=== PATIENT | male | born 1965 | race Caucasian/White ===

== ENCOUNTER 2018-06-02 09:28 | Inpatient (IN) | payer OTHER, SELFPAY ==
[2018-06-02] MEDS ORDERED: Ondansetron HCl/PF 4 MG/2 ML Vial ONE ×2 (09:55→11:20)
[2018-06-02] MEDS ORDERED: Pantoprazole 40 MG VIAL ONE (10:15)
[2018-06-02 10:16] LABS: Hemoglobin 18.9 g/dL (14.0-18.0); Mean Corpuscular HGB CONC 34.7 g/dL (32.0-36.0); Mean Corpuscular Hemoglobin 32.9 pg (27.0-31.0); Mean Corpuscular Volume 94.7 fL (78.0-98.0); Mean Platelet Volume 9.1 fL (7.4-10.4); Platelet Count 225 thou/uL (130-400); Red Blood Cell (RBC) Count 5.76 mill/uL (4.70-6.10); White Blood Cell (WBC) Count 20.2 thou/uL (4.8-10.8)
[2018-06-02 10:33] LABS: ALT (SGPT) 2126 U/L (8-55); AST (SGOT) 3267 U/L (5-34); Albumin 4.7 g/dL (3.5-5.0); Alkaline Phosphatase 130 U/L (40-150); Anion Gap 20 mmol/L (10-20); BUN (Urea Nitrogen) 17 mg/dL (8.4-25.7); Bilirubin, Total 1.8 mg/dL (0.2-1.2); Calc. Creatinine Clearance 0 mL/min (70-130); Calcium 8.8 mg/dL (7.8-10.44); Carbon Dioxide 27 mmol/L (22-29); Chloride 91 mmol/L (98-107); Estimated GFR-MDRD 58; Globulin 3.3 g/dL (2.4-3.5); Glucose 435 mg/dL (70-105); Lipase 16 U/L (8-78); Potassium 3.9 mmol/L (3.5-5.1); Sodium 134 mmol/L (136-145)
[2018-06-02 10:38] LABS: Troponin I Less than 0.010 ng/mL (< 0.028)
[2018-06-02 10:47] LABS: Band 4 % (5-11); Eosinophils 1 % (0-10); Lymphocytes 8 % (21-51); MDiff Complete? YES; Monocytes 3 % (0-10); Neutrophil 83 % (42-75); PLT Morphology Comment Appears Adequate; Reactive Lymphocytes 1 % (0-10)
[2018-06-02] MEDS ORDERED: Piperacillin/Tazobactam 4.5 GM VIAL ONE (11:20)
[2018-06-02] MEDS ORDERED: Lorazepam 2 MG/ML VIAL ONE (11:22)
[2018-06-02 12:08] LABS: Acetaminophen Less than 6.0 mcg/mL (10.0-30.0); Alcohol 38 mg/dL (Less than 10); Salicylate Less than 8.0 mg/dL (15.0-30.0)
[2018-06-02] MEDS ORDERED: Lidocaine Viscous Sol 2% 15 ml UD Cup ONE (12:09)
[2018-06-02] MEDS ORDERED: ISOVUE-370 76%-LOCM 1 ML ONE (12:22)
--- NOTE | 2018-06-02 12:23 | CT ---
CT OF THE ABDOMEN AND PELVIS WITH IV CONTRAST: INDICATION: Nausea and vomiting with coffee grounds emesis. FINDINGS: The exam was compared to a prior dated 04/11/08. Lung bases are clear. There is a small hiatal hernia. There is wall thickening involving the distal esophagus. There is fatty infiltration of the liver. A small gallstone is seen within the gallbladder neck. The pancreas and adrenal glands are normal appearing. The kidneys and spleen appear within normal li mits. No free fluid or enlarged lymph nodes are evident. There is a normal appendix in the right lo wer quadrant of the abdomen. Colon is largely decompressed. The small bowel is of normal caliber. No free fluid or lymphadenopathy is evident within the pelvis. No definite acute osseous abnormality is evident. IMPRESSION: 1. Wall thickening involving the esophagus may be related to reflux esophagitis or poor distention. 2. Fatty liver. 3. Cholelithiasis. POS: [facility]
--- NOTE | 2018-06-02 12:25 | RAD ---
AP VIEW OF THE CHEST: INDICATION: Nausea and vomiting. COMPARISON: Prior chest radiograph dated 04/11/08. FINDINGS: Lungs are clear. Heart size is upper limits of normal. No acute osseous abnormality is evident. IMPRESSION: No acute abnormality. POS: [facility]
--- NOTE | 2018-06-02 13:13 | PDOC.FPRHP ---
- History of Present Illness Chief Complaint: nausea and vomiting History of Present Illness: Mr Heredia is a 53yo male with pmh of anxiety presenting with vomiting for the past 2 days. States a swollen, puffy throat with difficulty swallowing. Reports having to continue to spit saliva. Associated with voice change as well. Reports 10 to 15 episodes of emesis per day. Denies known sick contacts. Does report increased stress and recent travel to [facility] (2 months ago, stayed 2 wks). Alcohol use recently with binge drinking intermittently. Reports binge episodes occur with increased stress and anxiety. Vomiting consist of food and liquid particles only. Prior to admission today reports "coffee ground emesis." States pain to epigastrum radiating to chest with nausea. Last drink was this morning. Continues to report throat feeling like it is getting "more and more swollen." Denies SOB, blood in stool or melena. Endorses diffuse abdominal pain worse in epigastric area. ED Course: Zosyn 4.5g, Ativan 1mg, zofran 4mg, NS 1.5L, Protonix 80mg, NS 1L - Allergies/Adverse Reactions Allergies Allergy/AdvReac Type Severity Reaction Status Date / Time No Known Allergies Allergy Verified 05/19/13 09:37 - Home Medications Medication Instructions Recorded Confirmed Type No Known 05/19/13 06/02/18 History - History PMHx: Anxiety PSHx: None FHx: Father: PA, CAD, Alzemhier disease. Sister: GERD. Mother: HTN Social: Drinks socially but in the past daily drinker (no past history of alcohol withdrawl symptoms or DTs), pack per day around age [age] years old but stopped at that time as well, denies drug Travel: Multiple countries. Recent travel to [facility] 2 months ago - Review of Systems General: denies: fever/chills, weight/appetite/sleep changes, night sweats, fatigue Eyes: denies: eye pain, vision changes ENT: denies: nasal congestion, rhinorrhea Respiratory: reports: cough (with vomiting). denies: congestion, shortness of breath, exercise intolerance Cardiovascular: denies: chest pain, palpitation, edema, paroxysmal nocturnal dyspnea, orthopnea Gastrointestinal: reports: nausea, vomiting, abdominal pain, GI bleeding. denies: diarrhea, constipation Genitourinary: denies: incontinence, dysuria, polyuria, discharge Skin: denies: rashes, lesions, jaundice, itching Musculoskeletal: denies: pain, tenderness, stiffness, swelling, arthritis/ arthralgias Neurological: denies: numbness, syncope, seizure, weakness Psychological: reports: anxiety. denies: depression - Vital signs BP: 144/110 HR: 96 RR: 18 Tmax: 98.6 Pox: 96% on RA Wt: 83.91kg - Physical Exam Constitutional: NAD, awake, alert and oriented, well developed, other (voice hoarseness, spitting and gagging/hiccuping) HEENT: normocephalic and atraumatic, conjunctiva clear, TM's clear and intact, other (dry mucous membranes, hard/soft palate and buccal erythema) Neck: supple, trachea midline, other (neck tender to deep palpation) Heart: RRR, pulses present, no edema Lungs: CTAB Abdomen: soft, non-tender, bowel sounds present Skin: capillary refill <2 seconds Psychiatric: normal mood and affect, good judgment and insight, intact recent and remote memory FMR H&P: Results - Labs Result Diagrams: 06/03/18 05:21 06/03/18 05:21 Lab results: WBC 20.2 thou/uL (4.8-10.8) H 06/02/18 10:03 Hgb 18.9 g/dL (14.0-18.0) H 06/02/18 10:03 Hct 54.5 % (42.0-52.0) H 06/02/18 10:03 MCV 94.7 fL (78.0-98.0) 06/02/18 10:03 Plt Count 225 thou/uL (130-400) 06/02/18 10:03 Band Neuts % (Manual) 4 % (5-11) L 06/02/18 10:03 Sodium 134 mmol/L (136-145) L 06/02/18 10:03 Potassium 3.9 mmol/L (3.5-5.1) 06/02/18 10:03 Chloride 91 mmol/L (98-107) L 06/02/18 10:03 Carbon Dioxide 27 mmol/L (22-29) 06/02/18 10:03 BUN 17 mg/dL (8.4-25.7) 06/02/18 10:03 Creatinine 1.29 mg/dL (0.6-1.3) 06/02/18 10:03 Glucose 435 mg/dL (70-105) H 06/02/18 10:03 Lactic Acid 7.4 mmol/L (0.5-2.2) H* 06/02/18 10:00 Calcium 8.8 mg/dL (7.8-10.44) 06/02/18 10:03 Total Bilirubin 1.8 mg/dL (0.2-1.2) H 06/02/18 10:03 AST 3267 U/L (5-34) H 06/02/18 10:03 ALT 2126 U/L (8-55) H 06/02/18 10:03 Alkaline Phosphatase 130 U/L (40-150) 06/02/18 10:03 Serum Total Protein 8.0 g/dL (6.0-8.3) 06/02/18 10:03 Albumin 4.7 g/dL (3.5-5.0) 06/02/18 10:03 Lipase 16 U/L (8-78) 06/02/18 10:03 - Radiology Interpretation CT scan - abdomen Status: report reviewed by me Additional comment: Wall thickening involving esophagus, may be related to esophagitis or poor distention. Fatty liver, cholelithiasis Chest x-ray Status: report reviewed by me Additional comment: No acute abnormalities FMR H&P: A/P - Problem List (1) Intractable vomiting Current Visit: Yes Status: Acute Code(s): R11.10 - VOMITING, UNSPECIFIED (2) Anxiety Current Visit: Yes Status: Acute Code(s): F41.9 - ANXIETY DISORDER, UNSPECIFIED (3) Transaminitis Current Visit: Yes Status: Acute Code(s): R74.0 - NONSPEC ELEV OF LEVELS OF TRANSAMNS & LACTIC ACID DEHYDRGNSE (4) Alcohol use disorder Current Visit: Yes Status: Acute Code(s): TDA1290 - (5) Lactic acidosis Current Visit: Yes Status: Acute Code(s): E87.2 - ACIDOSIS (6) Hyperglycemia Current Visit: Yes Status: Acute Code(s): R73.9 - HYPERGLYCEMIA, UNSPECIFIED - Plan 53 yo M with PMHx anxiety and recent increase in alcohol use who presents with acute hepatitis Transaminitis 2/2 alcohol abuse vs viral vs parastitic infection - Hepatocellular pattern - AST/ALT: 3267/2126. Alk phos nml. Bili 1.8 - Alcohol: 38 - neg for Tylenol/salicylates, UDS neg - CT 06/02: Esophageal wall thickening, fatty liver, cholelithiasis, - RUQ US: Echogenic focus with questionable shadowing near gallbladder neck - Recent travel to [facility] - HIV/RPR/Hep panel pending - Continue Zosyn Hard/soft palate and buccal swelling - Likely result of inflammation from vomiting - Denies SOB - s/p Atarax IV & home ranitidine - Continue to monitor Nausea and Vomiting - No electrolyte abnormalities, lactic acidosis - 2.5L in ED - LR @ 110ml/hr - Zofran for nausea Hyperglycemia - Hx of undiagnosed DM vs DKA - Ordered BMP, HgbA1c, beta hydroxybut - Continue to monitor, consider VBG if labs come back abnormal Esophageal Thickening - Noted on CT, inflammatory vs esophageal varices - Consulted GI Lactic Acidosis - 7.4 - Downtrending repeat 5.4 - Continue IVF and antibiotics Polycythemia - Likely 2/2 volume depletion from vomiting - IVF - Continue to monitor, CBC in AM Leukocytosis - likely related to acute hepatitis Hyperbilirubinemia - Likely result of acute hepatitis, manage as above HTN - likely chronic - Start Lisinopril 10mg Alcohol Withdrawal - No hx of withdrawal in past - Last drink this AM - ASE protocol - Ativan PRN for withdrawal symptoms Code Status: FULL DVT ppx: Lovenox FMR H&P: Upper Level - Pertinent history 53 yo M with PMHx anxiety, alcohol use and remote hx of tobacco use who presents with 2 days of nausea and vomiting. Noted 1 episode of dark vomit just prior to admission. He also started to notice swelling in the top of his mouth and when he began to have trouble swallowing his spit he decided to come in. He has been taking zantac every 2-3 hours the last couple of days with temporary improvement but denies taking any other medications or herbs. He has been eating but would throw it right back up. He drank heavily on Saturday night, felt anxious yesterday and had a few drinks and a beer this morning and threw them all back up. He denies f/c/diarrhea. His throat is puffy and he is noting voice changes. Denies sick contacts. Recently when to [place] 2 months ago but denies any 'adventurous eating' and no one with him got sick. He denies any rashes or bug bites. His discomfort is mostly in his mid-abdomen and he is hiccuping which he reports started when he arrived. - Pertinent findings Exam: Gen: alert and oriented x3. belching/hiccupping and spitting up clear sputum, appears anxious and is fidgeting HEENT: PERRLA, EOMI, conjunctiva non-injected, soft palate swollen without exudates, posterior oropharynx and tonsils not swollen, mild erythema, TTP in anterior cervical chain without palpable LAD, no thyromegaly CV: RRR, no murmur noted RESP: CTAB Abd: soft, mildly TTP in epigastrum, bowel sounds present throughout, liver palpable 1 cm below costal margin, negative Torres's and McBurney's point tenderness, no noted splenomegaly Ext: No edema, pulses full and equal Skin: tattoo on R wrist See labs and CT finding above - Plan Date/Time: 06/02/18 1311 I, Vivian Lopez MD, have evaluated this patient and agree with findings/plan as outlined by internal medicine doctor resident. Pertinent changes/additions are listed here. 53 yo M with PMHx anxiety, alcohol use and remote history of tobacco use here with intractable n/v and acute hepatitis 1. Acute hepatitis: Unclear etiology but significant transaminitis with leukocytosis. DDX includes acute biliary tract pathology including cholecystitis , alcoholic hepatitis, viral hepatitis, parasitic infection, and infectious mononucleosis. Alcohol level slightly elevated. Will start ASE protocol, check acute hepatitis panel, HIV, RPR. RUQ sono pending. Will consider general surgery consult vs. GI pending RUQ sono results. Serum drug screen WNL apart from alcohol. UDS pending. Started on Zozyn in ED, BCx pending. Repeat lactate pending. 2. Soft palate swelling: Likely inflammatory 2/2 ongoing vomiting. Will give 25mg Benadryl IV and recheck in 1 hour. No sx shortness of breath, hoarseness or stridor. Lungs CTAB. Will monitor closely. Will check monospot. 3. N/V: Labs consistent with contraction alkalosis with resultant metabolic acidosis. Will start IV LR @ 150 mL/hr 4. Anxiety: Pending stabilization, will discuss possible pharmacologic options 5. Alcohol abuse: ASE protocol. Denies history of DTs or withdrawals and has gone many days without drinking in last month. 6. Tattoo: Hepatitis, HIV and RPR as above 7. Elevated Hgb/Hct: Will monitor and consider further workup if persistent. Platelets WNL. 8. Hyperglycemia: Will repeat and add b-hb, a1c and add ABG if anion gap persistent 9. Hyperbilirubinemia: Likely related to heptatitis as above, will trend. 10. Lactic acidosis: Repeat pending. Fluids as above. 11. Elevated BP: Persistent without history. Will start ACEi and continue to monitor closely PPX: Lovetatex Attending Addendum - Attending Addendum Date/Time: 06/02/181822 I personally evaluated the patient and discussed the management with Dr. Dixon and Dr. Lopez I agree with the History, Examination, Assessment and Plan documented above with any addition or exceptions noted below. 53 yo male with history of anxiety disorder admitted for acute hepatitis and intractable N/V. Patient reports nausea better with medication. Still having dry heaves. Reports dysphagia and feeling throat swelling. 1 episode of coffee ground emesis prior to admission. Recent binge drinking episodes. Recent travel outside of country. Mild epigastric pain but nontender. VS reviewed. Elevated BP noted. Afebrile Oralpharynx with edema. Nontender abdomen. Labs and imaging reviewed. 1. Acute hepatits: Significantly elevated AST/ALT. Hep panel pending. Repeat LFT this afternoon. Continue IVFs. Check lipase. No evidence of Budd Mary on CT at this time. RUQ sono pending. Consult GI if progressing. Consider autoimmune hepatitis. Possible related to binge drinking. 2. HTN: Adjust BP meds 3. Anxiety: Add SSRI Treat symptoms. Monitor closely. Vinayak
[2018-06-02 13:15] LABS: INR-International Normal Ratio 1.7; PTT 31.2 SEC (22.9-36.1)
[2018-06-02 13:31] LABS: Bilirubin Negative (Negative); Blood, Urine Negative (Negative); Clarity CLEAR (Clear); Glucose, Urine (Dipstick) >=1000 mg/dL (Negative); Leukocyte Negative (Negative); Nitrite Negative (Negative); Protein, Urine (Dipstick) Negative (Neg-Trace); pH, Urine 6.5 (5.0-9.0)
[2018-06-02 13:35] LABS: Specific Gravity, Urine 1.059 (1.002-1.036)
[2018-06-02] MEDS ORDERED: diphenhydrAMINE 50 MG/ML VIAL IVP SCH (14:00)
[2018-06-02] MEDS ORDERED: diphenhydrAMINE 50 MG/ML VIAL ONE ×3 (14:07→14:09)
--- NOTE | 2018-06-02 14:31 | ULT ---
GALLBLADDER ULTRASOUND: HISTORY: Right upper quadrant pain. FINDINGS: Real-time imaging of the right upper quadrant was performed. This shows an approximately 5-6 mm echo genic focus closer to the gallbladder neck. It is difficult to definitely show that this moves with changes in patient position as the patient was not able to fully cooperate. On some of the images, t here is some shadowing present. It could represent a small stone or possibly an adherent cholesterol -type stone. The common duct is 5 mm. The technologist reports a negative ultrasound Torres's sign. The liver is of increased echogenicity. It measures 18 cm in length. The pancreas is partially obscured. The right kidney is normal in size and not obstructed. IMPRESSION: Echogenic focus with questionable faint shadowing seen near the gallbladder neck region. It is diffi cult to show that this moves with changes in patient position. The patient was unable to fully coope rate. This could represent a small nonshadowing stone, possibly an adherent cholesterol-type stone o r small polyp. POS: [facility]
[2018-06-02 14:59] LABS: Lactic Acid 5.3 mmol/L (0.5-2.2)
[2018-06-02] MEDS ORDERED: hydrOXYzine 25 MG/ML VIAL IM SCH (15:00)
[2018-06-02] MEDS ORDERED: Lactated Ringer's 1,000 ML IV SCH (17:28)
[2018-06-02] MEDS ORDERED: Lorazepam 1 MG TAB PO PRN (17:28)
[2018-06-02] MEDS ORDERED: Ondansetron ODT 4 MG TAB PO PRN (17:28)
[2018-06-02 17:49] VITALS: BMI 27.1
[2018-06-02 17:58] LABS: Amphetamine Not Detected (NotDetected); Barbiturates Screen Not Detected (NotDetected); Benzodiazepine Screen Not Detected (NotDetected); Cocaine Metabolite Screen Not Detected (NotDetected); Medtox Control Line Valid? VALID (VALID); Medtox Reader # READER 1; Methadone Not Detected (NotDetected); Methamphetamine Not Detected (NotDetected); Opiate Screen Not Detected (NotDetected); Oxycodone Screen Not Detected (NotDetected); Phencyclidine (PCP) Not Detected (NotDetected); THC/Cannabinoid Screen Not Detected (NotDetected); Tricyclic Screen Not Detected (NotDetected)
[2018-06-02 18:10] LABS: MONO NEGATIVE CONTROL ZONE White (Negative) (White); MONO POSITIVE CONTROL Pink Line (Positive) (PINK/RED); Mononucleosis NEGATIVE (NEGATIVE)
[2018-06-02 18:20] LABS: ALT (SGPT) 1599 U/L (8-55); AST (SGOT) 1693 U/L (5-34); Albumin 4.1 g/dL (3.5-5.0); Alkaline Phosphatase 108 U/L (40-150); Bilirubin, Direct 0.7 mg/dL (0.1-0.3); Bilirubin, Total 1.6 mg/dL (0.2-1.2); Protein, Total 6.8 g/dL (6.0-8.3)
[2018-06-02] MEDS ORDERED: Lisinopril 10 MG TAB PO SCH (18:30)
[2018-06-02] MEDS: Lactated Ringer's 1,000 ML IV SCH (18:30)
[2018-06-02 18:31] LABS: Anion Gap 15 mmol/L (10-20); BUN (Urea Nitrogen) 16 mg/dL (8.4-25.7); Calc. Creatinine Clearance 111 mL/min (70-130); Calcium 8.5 mg/dL (7.8-10.44); Carbon Dioxide 26 mmol/L (22-29); Chloride 102 mmol/L (98-107); Estimated GFR-MDRD 83; Glucose 206 mg/dL (70-105); Potassium 4.4 mmol/L (3.5-5.1); Sodium 139 mmol/L (136-145)
[2018-06-02 18:37] LABS: Syphilis Antibody Nonreactive (Nonreactive); Syphilis Antibody Index 0.07 S/CO (<1.00 Non-Reactive)
[2018-06-02 19:00] LABS: HBSAB Concentration 0.59 mIU/mL; HBSAg Index 0.19 S/CO (0-0.99); HIV (1/2) Antibody/Antigen Non-Reactive (NonReactive); HIV 1/2 INDEX 0.12 S/CO (<1.00); Hep A IgM AB Non-Reactive (NonReactive); Hep A IgM S/CO 0.09 S/CO (0-0.79); Hep B Core Total Ab Non-Reactive (NonReactive); Hep B Core Total Index 0.09 S/CO (0-0.79); Hep B Surf AB Non-Reactive (NonReactive); Hep B Surf Ag Non-Reactive S/CO (NonReactive); Hep C IgG Ab Non-Reactive (NonReactive); Hep C Index 0.19 S/CO (0-0.79)
[2018-06-02] MEDS: Multivitamins, Adult 10 ML, Folic Acid 1 MG, Thiamine HCl 100 MG in Dextrose 5 %-0.45 %... IV SCH (19:27)
[2018-06-02] MEDS: Piperacillin/Tazobactam 3.375 GM in Sodium Chloride 0.9% 100 ML IVPB SCH (20:43)
[2018-06-02] MEDS ORDERED: Famotidine 20 MG TAB PO SCH (21:00)
[2018-06-02] MEDS: Pantoprazole 40 MG VIAL IVP SCH (22:11)
--- NOTE | 2018-06-03 01:10 | CON ---
DATE OF CONSULTATION: 06/02/2018 REASON FOR CONSULTATION: Hepatitis. HISTORY OF PRESENT ILLNESS: Marty Heredia is a 53-year-old male, looks like this is his first admissio n to this hospital. He came to the emergency room this afternoon about 1 o'clock with complaints of nausea and vomiting and he was not holding anything down. He reports that starting Saturday, he bega n to have epigastric and left upper quadrant pain, nausea, and vomiting. He threw up several times a nd then had some coffee-ground emesis. He really had no melena or bowel movements. He drank quite a bit Saturday and Saturday, gone to a libertarian, and then had about 5 or 6 drinks. Then on Saturday, he liang d some more beers and by Saturday, he thought maybe he had tried to have a drink, but he just could not drink anything. He was having severe pain. He also had some family stress recently. He thinks it may be contributing. He reports history of anxiety in the past. He does also have a history of alco holism. He states that in the past year, he has not been drinking much. He states about 3 beers a w king salmon would be his average until Saturday when he imbibed little bit more than usual. He denies any sick contacts. He denies any prior history of liver disease or hepatitis. He denies any recent travel o r new medications. Denies taking large amounts of Tylenol. His pain was rated 10/10 in the emergenc y room. He was no longer vomiting there, but was still nauseated and had a quite a bit of chest disc omfort, felt like he was having reflux. REVIEW OF SYSTEMS: Notable for the fact that he had felt hot for the last several months and sweats sometimes at night. He has had no cough, shortness of breath, hematemesis, hemoptysis, weight loss, fever, chills, or rigors. No rashes, myalgias, or arthralgias. PAST MEDICAL HISTORY: 1. Anxiety. 2. Alcoholism. PAST SURGICAL HISTORY: Hernia repair, left inguinal; and previous elbow surgery [place] in [place]. PSYCHIATRIC HISTORY: Anxiety. SOCIAL HISTORY: The patient had issues with alcohol in the past and reports he drinks about 3 beers per week now except for he over indulged this past weekend. He denies any drug use. Denies smoking. ALLERGIES: None known. MEDICATIONS: None presently. Blood pressure on arrival to the ER was 147/102, pulse 126, temperature was 98.2. With hydration, he came to 155/92 with pulse 97, respirations 18, temperature 98. In the emergency room, he reportedly had mild tenderness in the abdomen. He received Benadryl, Zosyn, Ativan, Protonix, Zofran, and a li ter of fluid in the ER. He was admitted to the floor as he seemed dehydrated. Had signs of lactic a cidosis. White count of 20,000, hemoglobin of 18, glucose of 435, bilirubin 1.8. AST and ALT of 326 7 and 2126. Lipase was 16. His hemoglobin A1c was 7. His lactic acid was 7.4 on admission, was 5.3 at 1400. Urine drug screen was negative. Acetaminophen was less than 6, alcohol was 38, salicylate s 8, beta hydroxybutyrate 0.15. PRESENT MEDICATIONS: Lovenox, Pepcid, hydroxyzine, lactated ringers at 110 an hour, Zestril, Ativan, Zosyn. PHYSICAL EXAMINATION: GENERAL: The patient is resting comfortably in bed. He is a little bit overweight, in no distress. VITAL SIGNS: Temperature is 98.2, slightly tremulous; pulse is 100; respirations 16; O2 sat 96% on r oom air; blood pressure 180/87. HEENT: Oropharynx without lesions. No ulcers. NECK: Supple without adenopathy. LUNGS: Clear. HEART: Regular rate and rhythm without clicks or murmurs. ABDOMEN: Soft and nontender with no palpable hepatosplenomegaly. There is no rebound. There is no guarding. There are no hernias palpated. EXTREMITIES: No clubbing, cyanosis, or edema. NEUROLOGIC: He is alert and oriented to person, place, and time. He is not hyperreflexic. LABORATORY STUDIES AND X-RAY FINDINGS: White count 20,000, hemoglobin 18.9, platelet count is 225. INR is 1.7. Sodium 134, potassium 3.9, chloride 91, bicarbonate 27, anion gap 16, BUN 17, creatinine 1.29, glucose 435, bilirubin 1.8. AST and ALT of 3267 and 2126. Alkaline phosphatase is 130. Trop onin is less than 0.01. Lipase is 16; it was repeated at 1500 hours and it was 9. Albumin was 4.7. Urinalysis, high glucose. Serology: Syphilis and mono screen negative. Pending Labs: Hepatitis p heydi, HIV, mono test, CBC, and comp met have been ordered for tomorrow. He is at present on clear li quid. ASSESSMENT: This is a 53-year-old gentleman who came in with acute onset of nausea and vomiting over the weekend after a little bit of binge drinking. He had coffee-ground emesis and presented with si gns of dehydration, elevated BUN and creatinine, elevated transaminases and hemoconcentration of whit e count of 20,000. He is afebrile presently and he has a benign abdomen. An ultrasound was performe d of his liver and gallbladder secondary to the abnormal LFTs and he had possibly a stone in the neck of his gallbladder and a dilated duct of 5 mm was noted. His CAT scan with IV contrast showed some distal esophageal wall thickening, fatty liver, and gallstones. He has no signs of pancreatitis. PROBLEMS: 1. Dehydration from vomiting for 2 days with hemoconcentration. 2. Esophagitis with history of coffee-ground emesis. He may have had a Madeleine-Zambrano tear. He seem s not to have any overt ongoing GI bleed. His hemoglobin of 18 is probably hemoconcentrated. He is on H2 solange and needs to be on a PPI. 3. Elevated liver enzymes. Acute viral hepatitis of possibility. This is too high for alcohol. To xic ingestion is possible, though Tylenol is negative. He denies drug use. Ischemic hepatopathy is possible. 4. It does not appear that he has choledocholithiasis. RECOMMENDATIONS: 1. Follow liver function test. 2. We would give him banana bag daily. 3. PPI daily. 4. Agree with empiric antibiotics. 5. Agree with viral serologies ordered. 6. If there is any recurrence of nausea, vomiting, or hematemesis, he will need an esophagogastroduo denoscopy. 7. I would watch for signs of alcohol withdrawal. We will follow along with you.
[2018-06-03] MEDS: Lactated Ringer's 1,000 ML IV SCH ×4 (01:48→21:06)
[2018-06-03] MEDS: Piperacillin/Tazobactam 3.375 GM in Sodium Chloride 0.9% 100 ML IVPB SCH ×4 (02:30→20:28)
--- NOTE | 2018-06-03 05:43 | PDOC.FM ---
- Subjective Subjective: No overnight events. Pt reports nausea and vomiting has completely resolved. He endorses some LLQ pain. No BM for 2 days although this is typical for him. Does still report some soft tissue swelling in mouth but feels it has decreased and he is able to swallow normally now. He reports neck pain has resolved. Has not tried clear liquids but plans to this morning and advance as tolerated. Plans to start low carb diet and follow up with a PCP for HTN and newly dx'ed DM. Has hx of elevated blood sugars when he was 13 and reports it resolved with diet changes. - Objective MAR Reviewed: Yes Vital Signs & Weight: Vital Signs (12 hours) Temp Pulse Resp BP BP Pulse Ox 06/03/18 04:52 154/89 H 06/03/18 04:00 98.7 F 65 15 154/89 H 96 06/03/18 01:29 158/81 H 06/03/18 00:50 98.2 F 70 18 158/81 H 97 06/02/18 20:23 98.7 F 98 18 166/86 H 95 06/02/18 18:16 96 06/02/18 17:47 98.2 F 100 16 180/87 H 94 L Weight Weight 90.764 kg Result Diagrams: 06/03/18 05:21 06/03/18 05:21 <Jenifer Dixon - Last Filed: 06/03/18 10:08> - Objective Vital Signs & Weight: Vital Signs (12 hours) Temp Pulse Resp BP BP Pulse Ox 06/03/18 15:05 98.0 F 61 16 160/89 H 98 06/03/18 13:00 152/98 H 06/03/18 11:00 98.2 F 68 16 152/98 H 95 06/03/18 09:00 177/90 H 06/03/18 07:15 98.5 F 67 15 177/90 H 97 06/03/18 04:52 154/89 H Weight Weight 90.764 kg I&O: 06/02/18 06/03/18 06/04/18 06:59 06:59 06:59 Intake Total 3320 Balance 3320 Result Diagrams: 06/03/18 05:21 06/03/18 05:21 <Hazel Nolen - Last Filed: 06/03/18 16:14> Phys Exam - Physical Examination Constitutional: NAD Still some swelling of buccal and soft palate mucosa but is improved Neck: supple No longer tender to palpation Respiratory: no wheezing, clear to auscultation bilateral Cardiovascular: RRR, no significant murmur Gastrointestinal: soft, non-tender, positive bowel sounds Musculoskeletal: no edema, pulses present Psychiatric: normal affect, A&O x 3 Skin: cap refill <2 seconds <Jenifer Dixon - Last Filed: 06/03/18 10:08> Dx/Plan (1) Intractable vomiting Code(s): R11.10 - VOMITING, UNSPECIFIED Status: Acute (2) Anxiety Code(s): F41.9 - ANXIETY DISORDER, UNSPECIFIED Status: Acute (3) Transaminitis Code(s): R74.0 - NONSPEC ELEV OF LEVELS OF TRANSAMNS & LACTIC ACID DEHYDRGNSE Status: Acute (4) Alcohol use disorder Code(s): CXT7508 - Status: Acute (5) Lactic acidosis Code(s): E87.2 - ACIDOSIS Status: Acute (6) Hyperglycemia Code(s): R73.9 - HYPERGLYCEMIA, UNSPECIFIED Status: Acute (7) Polycythemia Code(s): D75.1 - SECONDARY POLYCYTHEMIA Status: Acute (8) Leukocytosis Code(s): D72.829 - ELEVATED WHITE BLOOD CELL COUNT, UNSPECIFIED Status: Acute (9) Hyperbilirubinemia Code(s): E80.6 - OTHER DISORDERS OF BILIRUBIN METABOLISM Status: Acute - Plan Plan: 53 yo M with PMHx anxiety and recent increase in alcohol use who presents with acute hepatitis Transaminitis 2/2 alcohol abuse vs parastitic infection - Hepatocellular pattern - AST/ALT: 3267/2126. Alk phos nml. Bili 1.8 - trending down - Alcohol: 38 - neg for Tylenol/salicylates, UDS neg - CT 06/02: Esophageal wall thickening, fatty liver, cholelithiasis, - RUQ US: Echogenic focus with questionable shadowing near gallbladder neck - Recent travel to [facility] - HIV/RPR/Hep panel neg - Continue Zosyn - GI has been consulted, apprec recs - Continue to trend LFTs - Protonix 40mg BID - If recurrence of n/v or hematemesis will need EGD - Ordered Legionella Hard/soft palate and buccal swelling, improving - Likely result of inflammation from vomiting - Denies SOB - s/p Atarax IV, famotidine, and home ranitidine - Continue to monitor Alcohol Withdrawal - No hx of withdrawal in past - Last drink yesterday - ASE protocol - Banana bag daily - Ativan PRN for withdrawal symptoms Newly diagnosed DMII - HgbA1c 7.0%, Blood glucose 435 on admission- has trended down - Initially anion gap 20, beta hydroxy 0.15 - SSI - ACHS accuchecks - Consider starting oral medication - Will need to f/u outpatient with PCP HTN - Likely chronic - Continue Lisinopril 10mg, started this admission - Will need to f/u outpt with PCP Esophageal Thickening - Noted on CT, likely inflammatory vs esophageal varices - Consulted GI, apprec recs Nausea and Vomiting, resolved - s/p 2.5L in ED - LR @ 110ml/hr - Zofran for nausea Lactic Acidosis, resolved - 7.4-> 5.4-> 1.6 - Continue IVF and antibiotics Leukocytosis - likely related to acute hepatitis Hyperbilirubinemia - Likely result of acute hepatitis, manage as above Polycythemia, resolved - Likely 2/2 volume depletion from vomiting - resolved with IVF Code Status: FULL DVT ppx: Lovenox <Jenifer Dixon - Last Filed: 06/03/18 10:08> Attending Addendum - Attending Addendum Date/Time: 06/03/18 8623 I personally evaluated the patient and discussed the management with Dr. Dixon. I agree with the History, Examination, Assessment and Plan documented above with any addition or exceptions noted below. Pt had clear liquids this morning and tolerated them. Transaminases are trending downward. Imaging reviewed. Appreciate GI input. Will continue IV fluids and monitor labs. <Hazel Nolen - Last Filed: 06/03/18 16:14>
[2018-06-03 05:45] LABS: #Eosinphils 0.2 thou/uL (0.0-0.7); #Lymphocytes 2.7 thou/uL (1.20-3.40); #Monocytes 0.8 thou/uL (0.11-0.59); #Neutrophils 8.3 thou/uL (1.40-6.50); %Basophils 0.2 % (0.0-1.0); %Eosinophils 1.6 % (0.0-10.0); %Lymphocytes 22.2 % (21.0-51.0); %Monocytes 6.6 % (0.0-10.0); %Neutrophils 69.4 % (42.0-75.0); Mean Corpuscular HGB CONC 33.7 g/dL (32.0-36.0); Mean Corpuscular Hemoglobin 32.5 pg (27.0-31.0); Mean Corpuscular Volume 96.6 fL (78.0-98.0); Mean Platelet Volume 9.4 fL (7.4-10.4); Platelet Count 132 thou/uL (130-400); RBC Distribution Width 11.7 % (11.5-14.5); Red Blood Cell (RBC) Count 4.31 mill/uL (4.70-6.10)
[2018-06-03] MEDS ORDERED: Dextrose 5% in Water 1,000 ML IV PRN (05:48)
[2018-06-03] MEDS ORDERED: HumaLOG 300 UNITS/3 ML VIAL SC PRN (05:48)
[2018-06-03] MEDS ORDERED: Dextrose 50% Abboject 50 ML SYRINGE SLOW IVP PRN (05:48)
[2018-06-03 05:52] LABS: ALT (SGPT) 970 U/L (8-55); AST (SGOT) 758 U/L (5-34); Albumin 3.3 g/dL (3.5-5.0); Alkaline Phosphatase 87 U/L (40-150); Anion Gap 10 mmol/L (10-20); BUN (Urea Nitrogen) 13 mg/dL (8.4-25.7); Bilirubin, Total 2.8 mg/dL (0.2-1.2); Calc. Creatinine Clearance 128 mL/min (70-130); Calcium 7.9 mg/dL (7.8-10.44); Carbon Dioxide 27 mmol/L (22-29); Chloride 103 mmol/L (98-107); Estimated GFR-MDRD Greater than 90; Globulin 2.2 g/dL (2.4-3.5); Glucose 172 mg/dL (70-105); Potassium 4.3 mmol/L (3.5-5.1); Protein, Total 5.5 g/dL (6.0-8.3); Sodium 136 mmol/L (136-145)
[2018-06-03 06:51] LABS: Lactic Acid 1.6 mmol/L (0.5-2.2)
[2018-06-03] MEDS: Pantoprazole 40 MG VIAL IVP SCH ×2 (08:34→20:28)
[2018-06-03] MEDS: Enoxaparin Sodium 40 MG/0.4 ML SYRINGE SC SCH (08:34)
[2018-06-03] MEDS: Lisinopril 10 MG TAB PO SCH (08:34)
[2018-06-03 11:55] LABS: Legionella Urinary Ag Negative (Negative)
[2018-06-03] MEDS: Multivitamins, Adult 10 ML, Folic Acid 1 MG, Thiamine HCl 100 MG in Dextrose 5 %-0.45 %... IV SCH (18:20)
--- NOTE | 2018-06-03 18:37 | PRG ---
DATE OF SERVICE: 06/03/2018 SUBJECTIVE: Mr. Heredia feels better. He wants to eat regular food. He has no oral or throat pain. He has a little bit of left lower quadrant pain. PHYSICAL EXAMINATION: VITAL SIGNS: Temperature is 98, blood pressure 177/92 and 160/98, respirations 16, temperature is 98, pulse 61. ABDOMEN: Soft, nontender. HEENT: Oropharynx without lesions. EXTREMITIES: Reveal no clubbing, cyanosis, or edema. SKIN: Turgor is good. LABORATORY DATA: White count is down from 20 to 12, hemoglobin has dropped from 18.9 to 14, platelet count is 132. Electrolytes are normal. Bilirubin 2.8. AST and ALT are down to 758 and 970. Lactic acid is 1.6. Serology negative for mono screen, hepatitis A, B, and C, syphilis, HIV. ASSESSMENT: 1. Abnormal liver enzymes, improving. This is likely shock liver or viral hepatitis. His elevated liver enzymes came after a heavy alcohol intake and a lot of vomiting. 2. Elevated hemoglobin and hematocrit, likely related to intravascular dehydration associated with nausea and vomiting, now resolved with rehydration. 3. Esophagitis and repetitive vomiting, symptoms improved. No thrush in the mouth, doing well on PPI. RECOMMENDATIONS: Advance diet. Recheck LFTs tomorrow. If he continues to do well, he can be discharged home tomorrow on PPI therapy for 6-8 weeks. ANNALISA
[2018-06-04] MEDS: Piperacillin/Tazobactam 3.375 GM in Sodium Chloride 0.9% 100 ML IVPB SCH ×2 (01:43→08:08)
[2018-06-04] MEDS: Lactated Ringer's 1,000 ML IV SCH (04:47)
[2018-06-04 05:31] LABS: #Basophils 0.1 thou/uL (0.0-0.2); #Eosinphils 0.3 thou/uL (0.0-0.7); #Lymphocytes 2.7 thou/uL (1.20-3.40); #Monocytes 0.6 thou/uL (0.11-0.59); #Neutrophils 3.3 thou/uL (1.40-6.50); %Eosinophils 3.9 % (0.0-10.0); %Monocytes 8.8 % (0.0-10.0); %Neutrophils 47.4 % (42.0-75.0); Hemoglobin 15.1 g/dL (14.0-18.0); Mean Corpuscular HGB CONC 33.9 g/dL (32.0-36.0); Mean Corpuscular Hemoglobin 32.9 pg (27.0-31.0); Mean Corpuscular Volume 97.1 fL (78.0-98.0); Mean Platelet Volume 9.7 fL (7.4-10.4); Platelet Count 122 thou/uL (130-400); RBC Distribution Width 11.7 % (11.5-14.5); White Blood Cell (WBC) Count 6.9 thou/uL (4.8-10.8)
[2018-06-04 05:56] LABS: ALT (SGPT) 716 U/L (8-55); AST (SGOT) 313 U/L (5-34); Albumin 3.8 g/dL (3.5-5.0); Alkaline Phosphatase 110 U/L (40-150); Anion Gap 12 mmol/L (10-20); BUN (Urea Nitrogen) 10 mg/dL (8.4-25.7); Bilirubin, Total 2.1 mg/dL (0.2-1.2); Calc. Creatinine Clearance 118 mL/min (70-130); Calcium 8.9 mg/dL (7.8-10.44); Carbon Dioxide 25 mmol/L (22-29); Chloride 104 mmol/L (98-107); Estimated GFR-MDRD 86; Globulin 2.9 g/dL (2.4-3.5); Glucose 151 mg/dL (70-105); Magnesium 1.8 mg/dL (1.6-2.6); Potassium 4.2 mmol/L (3.5-5.1); Protein, Total 6.7 g/dL (6.0-8.3); Sodium 137 mmol/L (136-145)
--- NOTE | 2018-06-04 06:09 | PDOC.FM ---
- Subjective Subjective: Doing well. Tolerating regular diet. Reports the day he drank large amts of alcohol and started vomiting that he also took 6-8 Tylenol and a box and a half of Zantac. Currently denies throat or stomach pain. No nausea or vomiting. Plans to establish care with a doctor his business info consultant sees to monitor his DMII, HTN and f/u his LFTs. - Objective MAR Reviewed: Yes Vital Signs & Weight: Vital Signs (12 hours) Temp Pulse Resp BP BP Pulse Ox 06/04/18 04:00 98.4 F 62 16 151/99 H 96 06/04/18 01:00 156/86 H 06/04/18 00:00 98.4 F 63 16 156/86 H 96 06/03/18 21:25 164/84 H 06/03/18 20:25 97 06/03/18 19:40 98.4 F 72 16 164/84 H 97 Weight Weight 90.764 kg I&O: 06/02/18 06/03/18 06/04/18 06:59 06:59 06:59 Intake Total 3320 2360 Output Total 1150 Balance 3320 1210 Result Diagrams: 06/04/18 04:51 06/04/18 04:51 <Jenifer Dixon - Last Filed: 06/04/18 09:40> - Objective Vital Signs & Weight: Vital Signs (12 hours) Temp Pulse Resp BP BP Pulse Ox 06/04/18 13:00 160/89 H 06/04/18 11:02 98.2 F 86 16 160/89 H 98 06/04/18 09:00 176/92 H 06/04/18 07:13 98.3 F 68 16 176/92 H 95 Weight Weight 90.265 kg I&O: 06/03/18 06/04/18 06/05/18 06:59 06:59 06:59 Intake Total 3320 3907 Output Total 1150 Balance 3320 2757 Result Diagrams: 06/04/18 04:51 06/04/18 04:51 <Hazel Nolen - Last Filed: 06/04/18 17:15> Phys Exam - Physical Examination Constitutional: NAD Neck: supple Respiratory: no wheezing, clear to auscultation bilateral Cardiovascular: RRR, no significant murmur Gastrointestinal: soft, non-tender, positive bowel sounds Psychiatric: normal affect, A&O x 3 <Jenifer Dixon - Last Filed: 06/04/18 09:40> Dx/Plan (1) Intractable vomiting Code(s): R11.10 - VOMITING, UNSPECIFIED Status: Acute (2) Anxiety Code(s): F41.9 - ANXIETY DISORDER, UNSPECIFIED Status: Acute (3) Transaminitis Code(s): R74.0 - NONSPEC ELEV OF LEVELS OF TRANSAMNS & LACTIC ACID DEHYDRGNSE Status: Acute (4) Alcohol use disorder Code(s): RGR5505 - Status: Acute (5) Lactic acidosis Code(s): E87.2 - ACIDOSIS Status: Acute (6) Hyperglycemia Code(s): R73.9 - HYPERGLYCEMIA, UNSPECIFIED Status: Acute (7) Polycythemia Code(s): D75.1 - SECONDARY POLYCYTHEMIA Status: Acute (8) Leukocytosis Code(s): D72.829 - ELEVATED WHITE BLOOD CELL COUNT, UNSPECIFIED Status: Acute (9) Hyperbilirubinemia Code(s): E80.6 - OTHER DISORDERS OF BILIRUBIN METABOLISM Status: Acute - Plan Plan: 53 yo M with PMHx anxiety and recent increase in alcohol use who presents with acute hepatitis Transaminitis 2/2 shock liver vs alcohol abuse vs parastitic infection - Initial AST/ALT: 3267/2126, trending down - Alcohol: 38. Tylenol/salicylates, UDS neg. Recent travel to [facility] - [place] 06/[place]: Esophageal wall thickening, fatty liver, cholelithiasis, - RUQ US: Echogenic focus with questionable shadowing near gallbladder neck - HIV/RPR/Hep panel, legionella neg - GI has been consulted, apprec recs Plan: - Continue to trend LFTs - Protonix 40mg BID - If recurrence of n/v or hematemesis will need EGD - Consider stopping Zosyn & IVF - Will go home with 6-8wks tx with PPI Hard/soft palate and buccal swelling, resolved - Likely result of inflammation from vomiting - Continue to monitor Alcohol Withdrawal - ASE protocol - Ativan PRN for withdrawal symptoms Newly diagnosed DMII - HgbA1c 7.0%, Blood glucose 435 on admission- has trended down - Initially anion gap 20, beta hydroxy 0.15 - SSI - ACHS accuchecks - Will need to f/u outpatient with PCP HTN - Likely chronic - Continue Lisinopril 10mg, started this admission - BP still uncontrolled, will add HCTZ 12.5mg - Will need to f/u outpt with PCP Esophageal Thickening - Noted on CT, likely inflammatory - Consulted GI, apprec recs Nausea and Vomiting, resolved - Zofran for nausea Lactic Acidosis, resolved - 7.4-> 5.4-> 1.6 Leukocytosis - likely related to acute hepatitis Hyperbilirubinemia - Likely result of acute hepatitis, manage as above Polycythemia, resolved - Likely 2/2 volume depletion from vomiting - resolved with rehydration Code Status: FULL DVT ppx: Lovenox <Jenifer Dixon - Last Filed: 06/04/18 09:40> Attending Addendum - Attending Addendum Date/Time: 06/04/18 0397 I personally evaluated the patient and discussed the management with Dr. Dixon. I agree with the History, Examination, Assessment and Plan documented above with any addition or exceptions noted below. Pt is feeling better and labs are improved. Will d/c home with f/u with PCP and GI. <Hazel Nolen - Last Filed: 06/04/18 17:15>
[2018-06-04] MEDS: Enoxaparin Sodium 40 MG/0.4 ML SYRINGE SC SCH (08:08)
[2018-06-04] MEDS: Lisinopril 10 MG TAB PO SCH (08:10)
[2018-06-04] MEDS: Pantoprazole 40 MG VIAL IVP SCH (08:12)
[2018-06-04] MEDS ORDERED: Hydrochlorothiazide 25 MG TAB PO SCH (09:00)
[2018-06-04 11:07] VITALS: BP 160/89; TEMP 98.2
--- NOTE | 2018-06-05 09:26 | DIS-2 ---
DATE OF ADMISSION: 06/02/2018 DATE OF DISCHARGE: 06/04/2018 RESIDENT: Jenifer Dixon, PGY1 ADMITTING ATTENDING: Hazel Nolen MD DISCHARGE ATTENDING: Hazel Nolen MD CONSULTATION: GI (Dr. Sousa). PROCEDURES: 1. Chest x-ray, no acute abnormalities. 2. Abdominal pelvis CT, showing wall thickening involving esophagus, fatty liver, cholelithiasis. 3. Abdominal ultrasound showing echogenic focus with questionable faint shadowing seen at the gallbladder neck region, limited by patient toleration. PRIMARY DIAGNOSES: 1. Transaminitis secondary to shock liver versus alcohol, Tylenol abuse. 2. Hard and soft palate buccal swelling, resolved. SECONDARY DIAGNOSES: 1. Alcohol abuse. 2. Newly diagnosed type 2 diabetes. 3. Newly diagnosed hypertension. 4. Esophageal thickening. 5. Nausea and vomiting, resolved. 6. Lactic acidosis, resolved. 7. Leukocytosis, resolved. 8. Hyperbilirubinemia. 9. Polycythemia, resolved. 10. Anxiety. DISCHARGE MEDICATIONS: 1. Hydrochlorothiazide 12.5 mg daily. 2. Lisinopril 10 mg daily. 3. Pantoprazole 40 mg b.i.d. DISCONTINUED MEDICATIONS: None. HISTORY OF PRESENT ILLNESS AND HOSPITAL COURSE: Mr. Heredia is a 53-year-old male with a past medical history of anxiety, presenting with nausea, vomiting for the past 2 days, reported heavy drinking over the weekend, combined with Tylenol and a large amount of Zantac use. He also was having swelling of his throat and mouth that worsened while in the emergency room. Social history was notable for a recent travel to [facility] and history of alcohol abuse with recent binge drinking. He was also reported coffee-ground emesis. Labs were notable for an AST of 3267, ALT of 2126 with a normal alkaline phosphatase and an elevated bilirubin at 1.8. Alcohol level was 38. UDS and Tylenol was negative. CT showed esophageal wall thickening, which we were concerned for esophageal varices at the time. We obtained a right upper quadrant ultrasound to evaluate the liver and gallbladder, no abnormalities of the liver were seen, but some questionable shadowing of the gallbladder neck and a small gallstone. The liver was visualized. HIV, RPR, and hepatitis panel and legionella were negative. He was empirically started on Zosyn for concern of infectious etiology. GI was consulted who felt that an EGD was not necessary at the time as his nausea and vomiting had resolved with fluid resuscitation and Zofran. If he has recurrence of hematemesis, they would like to do an EGD. For his mouth and throat swelling, this was attributed to resultant inflammation from vomiting that resolved with Atarax and ranitidine. There is a concern for alcohol withdrawal with his history of heavy drinking and recent binge drinking. He was placed on an ASE protocol and had p.r.n. Ativan, but he had no signs of alcohol withdrawal during hospitalization. He is newly diagnosed with type 2 diabetes with a hemoglobin A1c of 7% and his blood glucose was noted to be 435 on admission with an anion gap of 20. Beta hydroxyurea of 0.15. He mentioned a history of elevated blood sugars as a teenager that resolved with diet. This will need to be followed up with his PCP. He was noted to be hypertensive at admission and throughout his hospital stay. He was started on lisinopril and hydrochlorothiazide. This will need to be followed up as outpatient. His lab abnormalities of polycythemia, lactic acidosis, and leukocytosis, all resolved with fluid resuscitation and symptom management. His antibiotics were stopped. He also has severe anxiety. Patient states that this has been lifelong, but increased with recent stressors. He does not like the thought of taking a daily medication, but when explained to him the use of SSRI's for anxiety management, he was agreeable. This can be initiated in the outpatient setting. DISPOSITION: Stable. DISCHARGE INSTRUCTIONS: 1. Location: Home. 2. Diet: Diabetic. 3. Activity: No restrictions. 4. Followup: Follow up with PCP in 3-7 days. F/u with GI in clinic. MALUD
== END 2018-06-04 13:20 | disposition home or self-care (01) | DRG 641 ==
LOC: ERS 09:28 → 2NO 13:00
PROVIDERS: ADMIT Family Medicine; ATTEND Family Medicine
DX: E86.0 Dehydration (principal); F10.239 Alcohol dependence with withdrawal, unspecified; F41.9 Anxiety disorder, unspecified; E87.2 Acidosis; D75.1 Secondary polycythemia; E80.6 Other disorders of bilirubin metabolism; E11.65 Type 2 diabetes mellitus with hyperglycemia; I10 Essential (primary) hypertension; K20.9 Esophagitis, unspecified
CPT/HCPCS: 36415; 36416; 71045; 74177; 76705; 80053; 80306; 80307; 81003; 82010; 82274; 83036; 83605; 83690; 83735; 84100; 84134; 84484; 85025; 85610; 85730; 86308; 86704; 86706; 86708; 86709; 86780; 86803; 86850; 86900; 86901; 87040; 87086; 87340; 87389; 87899; 93005; 96361; 96365; 96375; 96376; A4216; C9113; J1200; J1650; J2060; J2405; J2543; J3410; J3411; J7042; J7050

== ENCOUNTER 2019-02-22 06:09 | Emergency (ER) | payer OTHER, SELFPAY ==
[2019-02-22] MEDS ORDERED: HYDROcodone/Acetaminophen 10/325 mg Tablet ONE (07:12)
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
== END 2019-02-22 07:50 | disposition home or self-care (01) ==
LOC: ERS 06:09
DX: S80.11XA Contusion of right lower leg, initial encounter (principal); F41.9 Anxiety disorder, unspecified; W20.8XXA Other cause of strike by thrown, projected or falling object, initial encounter

== ENCOUNTER 2024-06-28 10:48 | Inpatient (IN) | payer BC, SELFPAY ==
[2024-06-28 11:51] LABS: #Basophils 0.07 10x3/uL (0.0-0.2); %Basophils 0.9 % (0.0-1.0); %Eosinophils 1.7 % (0.0-10.0); %Lymphocytes 36.3 % (21.0-51.0); %Monocytes 8.5 % (0.0-10.0); %Neutrophils 51.8 % (42.0-75.0); Hematocrit 38.2 % (42.0-52.0); Hemoglobin 12.3 g/dL (14.0-18.0); Mean Corpuscular HGB CONC 32.2 g/dL (32.0-36.0); Mean Corpuscular Hemoglobin 30.3 pg (27.0-31.0); Mean Corpuscular Volume 94.1 fL (78.0-98.0); Mean Platelet Volume 9.2 fL (7.4-10.4); Platelet Count 171 10x3/uL (130-400); RBC Distribution Width 18.4 % (11.5-14.5); Red Blood Cell (RBC) Count 4.06 mill/uL (4.70-6.10)
[2024-06-28 12:05] LABS: Acetaminophen Less than 10 mcg/mL (Less than 10); Alcohol Less than 10.0 mg/dL (Less than 10); Salicylate Less than 8.0 mg/dL (Less than 8.0)
[2024-06-28 12:17] LABS: ALT (SGPT) 13 U/L (8-55); AST (SGOT) 24 U/L (5-34); Albumin 3.8 g/dL (3.4-4.8); Alkaline Phosphatase 385 U/L (40-110); Anion Gap 13 mmol/L (10-20); BUN (Urea Nitrogen) 7 mg/dL (8.4-25.7); Bilirubin, Total 0.2 mg/dL (0.2-1.2); Calc. Creatinine Clearance 0 mL/min (70-130); Calcium 8.4 mg/dL (7.8-10.44); Carbon Dioxide 18 mmol/L (23-31); Chloride 109 mmol/L (98-107); Estimated GFR 113; Globulin 2.6 g/dL (2.4-3.5); Glucose 157 mg/dL (80-115); Potassium 4.3 mmol/L (3.5-5.1); Protein, Total 6.4 g/dL (5.8-8.1); Sodium 136 mmol/L (136-145)
[2024-06-28 12:58] LABS: Actual Bicarbonate (HCO3v) 21.1 mEq/L (22-28); Analyzer IN Cardio ER; Base Excess -4.2 mEq/L (-2.0 to +3.0); Calcium, Ionized (venous) 1.09 mmol/L (1.16-1.32); Chloride (VBG) 104 mmol/L (98-106); Hematocrit-VBG 40 % (42.0-52.0); Hemoglobin (Hb) 13.6 g/dL (13.1-17.2); Potassium (VBG) 4.68 mmol/L (3.70-5.30); Sodium 142 mmol/L (133-146); pH (venous) 7.344 (7.32-7.43)
[2024-06-28 13:23] LABS: Bacteria/HPF None Seen HPF (None Seen); Bilirubin Negative (Negative); Blood, Urine Negative (Negative); CAUTI Indications for Culture Alt mental st,lethar; Clarity Clear (Clear); Glucose, Urine (Dipstick) Normal (Negative); Ketone, Urine Trace mg/dL (Negative); Leukocyte Negative Leu/uL (Negative); Nitrite Negative (Negative); Protein, Urine (Dipstick) Negative (Neg-Trace); RBC/HPF 0-3 HPF (0-3); Specific Gravity, Urine 1.012 (1.002-1.036); Squamous Epithelial None Seen HPF (0-3); Urobilinogen Normal mg/dL (Less than 2); WBC/HPF 0-3 HPF (0-3)
[2024-06-28 13:26] LABS: Urine Culture Reflex No No
[2024-06-28 13:27] LABS: Amphetamine Not Detected (NotDetected); Barbiturates Screen Not Detected (NotDetected); Benzodiazepine Screen Not Detected (NotDetected); Cocaine Metabolite Screen Not Detected (NotDetected); Methadone Not Detected (NotDetected); Methamphetamine Not Detected (NotDetected); Opiate Screen Not Detected (NotDetected); Oxycodone Screen Not Detected (NotDetected); Phencyclidine (PCP) Not Detected (NotDetected); THC/Cannabinoid Screen Not Detected (NotDetected); Tricyclic Screen Not Detected (NotDetected)
[2024-06-28] MEDS ORDERED: Lorazepam 2 MG/ML VIAL IM PRN (14:51)
[2024-06-28] MEDS ORDERED: Acetaminophen 650 MG Suppository PR PRN (14:51)
[2024-06-28] MEDS ORDERED: Lorazepam 1 MG TAB PO PRN (14:51)
[2024-06-28] MEDS ORDERED: Ondansetron ODT 4 MG TAB PO PRN (14:51)
[2024-06-28] MEDS ORDERED: Electrolyte Replacement Protocol 1 EACH FS SCH (15:00)
[2024-06-28] MEDS ORDERED: Lorazepam 1 MG TAB PO SCH (15:00)
[2024-06-28 16:13] VITALS: BMI 20.7
[2024-06-28] MEDS: Thiamine HCl 200 MG/2 ML VIAL SLOW IVP SCH (17:04)
[2024-06-28] MEDS: Sodium Chloride 0.9% 1,000 ML IV SCH (17:05)
[2024-06-28] MEDS: Folic Acid 1 MG TAB PO SCH (22:07)
[2024-06-28] MEDS: Multivit, Therapeutic 1 TAB PO SCH (22:07)
[2024-06-28] MEDS: Ondansetron PF 4 MG/2 ML Vial IVP PRN (23:50)
[2024-06-29 06:26] LABS: #Basophils 0.04 10x3/uL (0.0-0.2); %Basophils 0.7 % (0.0-1.0); %Eosinophils 0.7 % (0.0-10.0); %Monocytes 9.4 % (0.0-10.0); %Neutrophils 67.5 % (42.0-75.0); Hematocrit 33.5 % (42.0-52.0); Hemoglobin 10.3 g/dL (14.0-18.0); Mean Corpuscular HGB CONC 30.7 g/dL (32.0-36.0); Mean Corpuscular Hemoglobin 30.1 pg (27.0-31.0); Mean Platelet Volume 9.1 fL (7.4-10.4); Platelet Count 154 10x3/uL (130-400); RBC Distribution Width 18.9 % (11.5-14.5); Red Blood Cell (RBC) Count 3.42 mill/uL (4.70-6.10)
[2024-06-29 06:59] LABS: ALT (SGPT) 11 U/L (8-55); AST (SGOT) 18 U/L (5-34); Albumin 3.5 g/dL (3.4-4.8); Alkaline Phosphatase 357 U/L (40-110); Anion Gap 13 mmol/L (10-20); BUN (Urea Nitrogen) 6 mg/dL (8.4-25.7); Bilirubin, Total 0.3 mg/dL (0.2-1.2); Calc. Creatinine Clearance 81 mL/min (70-130); Calcium 8.1 mg/dL (7.8-10.44); Carbon Dioxide 19 mmol/L (23-31); Chloride 111 mmol/L (98-107); Estimated GFR 92; Globulin 2.3 g/dL (2.4-3.5); Glucose 134 mg/dL (80-115); Potassium 3.8 mmol/L (3.5-5.1); Protein, Total 5.8 g/dL (5.8-8.1); Sodium 139 mmol/L (136-145)
[2024-06-29] MEDS ORDERED: Lorazepam 1 MG TAB PO PRN (08:36)
[2024-06-29] MEDS: Pantoprazole DR 40 MG TAB PO SCH (12:55)
[2024-06-29] MEDS: Diazepam 5 MG TAB PO SCH (12:55)
[2024-06-29] MEDS: Lorazepam 2 MG/ML VIAL SLOW IVP SCH (14:43)
[2024-06-29 17:51] VITALS: BMI 20.7
[2024-06-30] MEDS: Lorazepam 1 MG TAB PO PRN (03:37)
[2024-06-30 06:26] LABS: #Basophils 0.03 10x3/uL (0.0-0.2); %Basophils 0.7 % (0.0-1.0); %Eosinophils 2.4 % (0.0-10.0); %Lymphocytes 24.2 % (21.0-51.0); %Monocytes 11.6 % (0.0-10.0); %Neutrophils 60.4 % (42.0-75.0); Hematocrit 32.4 % (42.0-52.0); Hemoglobin 10.5 g/dL (14.0-18.0); Mean Corpuscular HGB CONC 32.4 g/dL (32.0-36.0); Mean Corpuscular Hemoglobin 30.8 pg (27.0-31.0); Mean Platelet Volume 9.5 fL (7.4-10.4); Platelet Count 146 10x3/uL (130-400); RBC Distribution Width 18.4 % (11.5-14.5); Red Blood Cell (RBC) Count 3.41 mill/uL (4.70-6.10)
[2024-06-30 06:42] LABS: Iron 78 ug/dL (65-175); Iron Binding Capacity, Total 269 mcg/dL (261-462)
[2024-06-30 06:47] LABS: ALT (SGPT) 10 U/L (8-55); AST (SGOT) 17 U/L (5-34); Albumin 3.5 g/dL (3.4-4.8); Alkaline Phosphatase 353 U/L (40-110); Anion Gap 12 mmol/L (10-20); BUN (Urea Nitrogen) 6 mg/dL (8.4-25.7); Bilirubin, Total 0.2 mg/dL (0.2-1.2); Calc. Creatinine Clearance 72 mL/min (70-130); Calcium 8.6 mg/dL (7.8-10.44); Carbon Dioxide 22 mmol/L (23-31); Chloride 113 mmol/L (98-107); Estimated GFR 80; Globulin 2.4 g/dL (2.4-3.5); Glucose 122 mg/dL (80-115); Iron 79 ug/dL (65-175); Iron Binding Capacity, Total 274 mcg/dL (261-462); Magnesium 2.1 mg/dL (1.6-2.6); Protein, Total 5.9 g/dL (5.8-8.1); Sodium 143 mmol/L (136-145)
[2024-06-30 06:58] LABS: INR-International Normal Ratio 1.3; PTT 31.1 sec (22.9-36.1); Prothrombin Time 16.3 sec (12.0-14.7)
[2024-06-30] MEDS: Pantoprazole DR 40 MG TAB PO SCH (09:47)
[2024-06-30] MEDS ORDERED: Lorazepam 1 MG TAB PO PRN (14:52)
[2024-06-30] MEDS ORDERED: Lorazepam 0.5 MG TAB PO SCH (15:00)
[2024-06-30 16:06] VITALS: BP 168/89; TEMP 97.7
[2024-06-30] MEDS ORDERED: Amlodipine 5 MG TAB PO SCH (19:00)
[2024-07-01] MEDS ORDERED: Amlodipine 5 MG TAB PO SCH (09:00)
[2024-07-01] MEDS ORDERED: Thiamine 100 MG TAB PO SCH (09:00)
[2024-07-01] MEDS ORDERED: Lorazepam 0.5 MG TAB PO PRN (14:52)
== END 2024-06-30 20:03 | disposition home or self-care (01) | DRG 917 ==
LOC: ERS 10:48 → T4-B 16:06 → OBSVTOIN 06-29 10:58
PROVIDERS: ADMIT Internal Medicine; ATTEND Family Medicine
PROC: 4A00X4Z Measurement of Central Nervous Electrical Activity, External Approach (ICD-10-PCS; principal; 2024-06-29)
DX: T51.2X1A Toxic effect of 2-Propanol, accidental (unintentional), initial encounter (principal); G92.8 Other toxic encephalopathy; C79.51 Secondary malignant neoplasm of bone; F32.A Depression, unspecified; K70.10 Alcoholic hepatitis without ascites; I10 Essential (primary) hypertension; R00.0 Tachycardia, unspecified; D64.9 Anemia, unspecified; C61 Malignant neoplasm of prostate; F41.9 Anxiety disorder, unspecified; F10.10 Alcohol abuse, uncomplicated; Y90.0 Blood alcohol level of less than 20 mg/100 ml
CPT/HCPCS: 36415; 36416; 51701; 70450; 70553; 71045; 74019; 76376; 80053; 80306; 80307; 81001; 82010; 82140; 82728; 82805; 82977; 83540; 83550; 83605; 83735; 83930; 84439; 84443; 85025; 85046; 85610; 85730; 86850; 86900; 86901; 93005; 95700; 95711; 95957; 96360; 96374; 96375; G0378; J2060; J2405; J3411; J7030